=== PATIENT | male | born 1935 | race Caucasian/White ===

== ENCOUNTER 2017-01-03 12:11 | Day surgery (SDC) | payer MEDICARE ==
[~2017-01-03] VITALS: Ht 175.3 cm; Wt 102.3 kg
[~2017-01-03 12:11] MED LIST: ALLO300 PO; AMIO200T PO; ATOR20TA42 PO; BYST2.5T2 PO; CALC-197 PO; CEPH500; DOXA1 PO; GLUC10TA3 PO; KLOR20TA6 PO; LASI80TA PO; LORTA10 PO; PRIL40CA PO; TAB-TAB PO; TELM1TAB56 PO; VITA100018 PO
[2017-01-03 12:30] VITALS: BP 119/76; PULSE 71; RESP 17; TEMP 98.2; O2SAT 92
[2017-01-03] MEDS ORDERED: VANCOMYCIN 1000 MG/NS 250 ML IV SCH ×2 (13:00)
[2017-01-03] MEDS ORDERED: INSULIN HUMAN REGULAR 1,000 UNITS/10 ML VIAL SQ PRN (13:00)
[2017-01-03] MEDS ORDERED: Hold AM Insulin & AM Hypoglycemic medications in diabetic patients PRN (13:00)
[2017-01-03] MEDS ORDERED: POVIDONE IODINE 5% (ANTISEPSIS KIT) 4 APPLICATIONS EACH NARE SCH (13:00)
[2017-01-03] MEDS ORDERED: METOPROLOL TARTRATE 25 MG TAB PO PRN (13:00)
[2017-01-03] MEDS ORDERED: CHLORHEXIDINE GLUCONATE 2 % 1 PACK (2 CLOTHS) TOPICAL PRN (13:00)
[2017-01-03] MEDS ORDERED: NS 1000 ML IV SCH (13:00)
[2017-01-03] MEDS ORDERED: LORazepam 1 MG TAB SL SCH (13:00)
[2017-01-03] MEDS ORDERED: ceFAZolin 2 GM PREMIX 50 ML IV SCH (13:00)
[2017-01-03] MEDS ORDERED: POVIDONE IODINE 5% (ANTISEPSIS KIT) 4 APPLICATIONS EACH NARE PRN (13:00)
[2017-01-03] MEDS ORDERED: SODIUM CHLORID 0.9% 500 ML IV PRN (13:00)
[2017-01-03] MEDS ORDERED: MUPIROCIN 2% OINT 1 APPLIC/GM SYR NASAL SCH (13:00)
[2017-01-03] MEDS ORDERED: CHLORHEXIDINE GLUCONATE 2 % 1 PACK (2 CLOTHS) TOPICAL SCH (13:00)
[2017-01-03] MEDS ORDERED: LACTATED RINGER'S 1000 ML IV PRN (13:00)
[2017-01-03 13:12] LABS: BASOPHIL # 0.1 TH/MM3 (0-0.2); BASOPHIL % 1.1 % (0.0-2.0); EOSINOPHIL # 0.2 TH/MM3 (0-0.4); EOSINOPHIL % 3.2 % (0.0-4.0); HEMATOCRIT 39.2 % (39.0-51.0); HEMO FLAGS DIFF FINAL; LYMPH % 22.6 % (9.0-44.0); LYMPHOCYTE # 1.7 TH/MM3 (1.0-4.8); MEAN CELL VOLUME 97.9 FL (80.0-100.0); MEAN CORPUSCULAR HEMOGLOBIN 32.9 PG (27.0-34.0); MEAN CORPUSCULAR HGB CONC 33.6 % (32.0-36.0); NEUT % 66.1 % (16.0-70.0); PLATELET COUNT 161 TH/MM3 (150-450); RED BLOOD COUNT 4.01 MIL/MM3 (4.50-5.90); RED CELL DISTRIBUTION WIDTH 15.5 % (11.6-17.2); WHITE BLOOD COUNT 7.5 TH/MM3 (4.0-11.0)
[2017-01-03] MEDS ORDERED: CALC1TAB12 PO (13:22)
[2017-01-03] MEDS ORDERED: BYST5TAB2 PO (13:22)
[2017-01-03] MEDS ORDERED: AMOX500C PO (13:22)
[2017-01-03] MEDS ORDERED: DOXA1TAB35 PO (13:22)
[2017-01-03] MEDS ORDERED: FURO80TA PO (13:22)
[2017-01-03] MEDS ORDERED: ALLO300T2 PO (13:22)
[2017-01-03] MEDS ORDERED: GLIP10TA6 PO (13:22)
[2017-01-03] MEDS ORDERED: LIPI20TA PO (13:22)
[2017-01-03] MEDS ORDERED: TELM1TAB56 PO (13:22)
[2017-01-03] MEDS ORDERED: POTA-163 PO (13:22)
[2017-01-03] MEDS ORDERED: MULT1TAB84 PO (13:22)
[2017-01-03] MEDS ORDERED: APIX5TAB PO (13:22)
[2017-01-03 13:23] LABS: APTT (PATIENT) 28.2 SEC (24.3-30.1); INTERNATIONAL NORMALIZED RATIO 1.1 RATIO; PROTHROMBIN TIME - PATIENT 11.9 SEC (9.8-11.6)
[2017-01-03 13:28] LABS: BICARBONATE 36.7 MEQ/L (21.0-32.0); POTASSIUM 3.6 MEQ/L (3.5-5.1)
[2017-01-03] MEDS ORDERED: PROPOFOL 200 MG/20 ML AMP IV ONE (15:40)
[2017-01-03] MEDS ORDERED: MIDAZOLAM HCL 2 MG/2 ML VIAL ONE (15:48)
[2017-01-03] MEDS ORDERED: VANCOMYCIN 500 MG VIAL ONE (15:51)
[2017-01-03] MEDS ORDERED: LIDOCAINE HCL 2% 50 ML VIAL ONE (15:51)
[2017-01-03] MEDS ORDERED: CEPH-460 PO (16:43)
[2017-01-03] MEDS ORDERED: ACET300T2 PO (16:43)
[2017-01-03] MEDS ORDERED: ACETAMINOPHEN/CODEINE 300 MG/30 MG TAB PO PRN (16:45)
--- NOTE | 2017-01-03 16:47 | CATHPROC ---
[employer] HIS Report Study Information Study Number Admission Scheduled Start Study Start [id number] 01/02/2017 01/03/2017 01/03/2017 Referring Institution Admit Source Facility Department 1 Other [facility] - [facility] Physician and Clinical Staff Initial Virgie Helm Dope Sprayer Sil Holden,RN Other Anesthesia, SET BUILDER Recorder Sil Holden,RN Recorder Ingrid Myers,RT(R) TECH2 Scrub Moraima Camargo RCIS Equipment Time Warehouse Clerk Description Size Mfg Part Number Used/Scraped DERMABOND, ADHESIVE SKIN 15:52 CORDIS/PACER * [id number] Used GLUE MINI 15:52 Quad/Graphics INDUSTRIES SUTURE, STRIP PLUS 1/2" * [id number] Used 15:52 MEDLINE PACER SINHA, LIMB * [id number] Used 15:52 Quad/Graphics PACER PACK, PACER CUSTOM * [id number] Used 16:06 Needle Sponge Count 1 1 Used 16:07 Needle Sponge Count 2 22 Used 16:07 Needle Sponge Count 20 200 Used SUTURE, 2-0 VICRYL [CT1] ([id number]) 15:52 [facility] BLANKET,WARM AIR CCL * [id number] Used [facility] PAD, ELECTROSURGICAL 15:52 * [id number] Used SURGICAL GROUNDING ORANGE 16:14 VITATRON MEDTRONIC DEFIBRILLATOR, VIVA XT ADVERTISING CAMPAIGN MANAGER-D DDE-DDDR [id number] Used 15:59 VITATRON MEDTRONIC PLASMABLADE, PEAD 3.0S * [id number] Used Equipment Model, Serial, Lot Number and Expiration Data Description Model Number Serial Number Lot Number Expiration Date DEFIBRILLATOR, VIVA XT ADVERTISING CAMPAIGN MANAGER-D [id number] 01-13-2018 PLASMABLADE, PEAD 3.0S [id number] 08-21-2019 History: Current Medications Medication Dosage/Unit Route Frequency Last Date/Time Taken ELIQUIS Glucophage History: Allergies Allergy Reaction Simvastatin History: Risk Factors Hypertension Dyslipidemia Yes Yes Prior PCI Prior PCIDate Yes 08/16/2016 Cerebrovascular Diabetes Diabetes Therapy Disease Yes Yes Oral Labs Hgb (g/dl) Hct (%) RBC (MIL/MM3) WBC (l/cumm) Platelets (thousands) 12.00-18.00 37.00-55.00 4.80-6.20 4.80-10.80 140.00-450.00 13.0 39 4 7.5 161 Glucose (mg/dl) BUN (mg/dl) Creatinine (mg/dl) BUN:Creatinine (1:x) 60.00-110.00 8.00-20.00 0.10-9.00 10.00-20.00 115 50 1.8 27.8 Na (meq/l) K (meq/l) 138.00-146.00 3.80-5.10 145 3.6 INR (PTT:PT) 0.50-2.00 1.1 Medication Medication Total Dose (Bolus/Oral) Medication Total Dosage/Unit 2% XYLOCAINE 50 mL Medications (Bolus/Oral) Medication Time Given Dosage/Unit Administered By Reason 2% XYLOCAINE 01/03/2017 4:08:04 PM 50 mL Virgie Montgomery For pain 50 mL 2% XYLOCAINE given in lab by Virgie Montgomery in Left shoulder via Subcutaneous. Ordered by Virgie Montgomery. Reason: For pain. Medication (Drip) Medication Time Given Dosage/Unit Concentration/Unit Diluent (ml) Solution ANCEF 01/03/2017 4:01:13 PM 2 g 2 g ANCEF given in lab by Anesthesia, SET BUILDER via Peripheral IV. Ordered by Virgie Montgomery. VANCOMYCIN DRIP 01/03/2017 4:02:39 PM 1 g 1 g VANCOMYCIN DRIP given in lab by Anesthesia, SET BUILDER via Peripheral IV. Ordered by Virgie Montgomery. Initial Case Assessment Cardiovascular HR Rhythm NIBP Chest Pain 50 vp genetic 160/75 0 Edema Present Skin color Skin None Normal Warm Dry Circulatory - Lower Extremities Color Lower Right Color Lower Left Normal Normal Neurological State Oriented to time-place- Alert Moves all extremities person Respiration - General Respiration Rate SpO2 (%) O2 (lpm) (B/min) 20 98 10 Chronological Log Time Study Chronological Log 15:40:34 Patient arrived via Bed. 15:45:42 Patient Name, D.O.B, / Armband Verified By R.N. 15:45:43 Pre-op and post- op instructions given; patient acknowledges understanding of instructions. 15:45:44 Consent signed by the physician and the patient and verified by the [facility] staff. 15:45:44 Anesthesia at bedside. Assumes care of patient. 15:45:46 Patient has been NPO for More than 6Hrs. 15:45:47 Skin Breakdown- none per pt 15:45:48 Patient Warmer Placed on the Table. 15:45:49 Disposable Defibrillator Pads Placed On Patient. 15:45:49 Aston Prominences Protected 15:46:00 Verbal Stimulation=2 Physical Stimulation=2 Airway=2 Respiration=2 TOTAL=8. (0=absent, 1=li mited, 2=present) 15:49:00 A # 20 IV was noted in the Antecubital (right). Grade = 0 0.9ns kvo 15:49:02 A # 20 IV was noted in the Antecubital (left). Grade = 0 0.9ns kvo 15:52:53 Table restraints applied according to hospital policy 15:53:49 History and physical on the chart. 15:54:03 Left Upper Chest Prepped Times Two. Assessment: Initial Case, HR=50 BPM, Rhythm=vp genetic, TMBJ=649/75 mmhg, Chest Pain=0, Edema=None, Col or=Normal, Skin = Warm, Dry Lower Right Extremities: Color=Normal 15:54:58 Lower Left Extremities: Color=Normal Neurological: State=Alert, Ox3, RAHMAN Respiration: Resp=20 B/min, SpO2=98 %, O2=10 lpm 15:59:18 Reference ECG taken 16:01:13 2 g ANCEF given in lab by Anesthesia, SET BUILDER via Peripheral IV. Ordered by Virgie Montgomery. 16:02:24 paged 16:02:39 1 g VANCOMYCIN DRIP given in lab by Anesthesia, SET BUILDER via Peripheral IV. Ordered by Fernando Montgomery. 16:04:41 MD arrived. First Sponge And Instrument Count Done by Sil Holden RN. 16:04:52 Hypo's: 1, Sponges: 20, Bovie/scratch: 2 Sutures: 2, Blades: 1, Instruments: 26, Syveck Patches: 0 Time Out. Correct patient, procedure, procedure equipment, site and side verified with physicia n present. Time 16:07:44 concurred by , individual staff and SET BUILDER. Time Out #2 - Consents verified, patient in correct position, all results are labled and displa yed, safety precautions 16:07:46 taken, antibiotics administered. Time out concurred by , individual staff and SET BUILDER in procedu re 16:08:01 Case Start 50 mL 2% XYLOCAINE given in lab by Virgie Montgomery in Left shoulder via Subcutaneous. Ordered by Virgie Montgomery. 16:08:04 Reason: For pain. 16:08:31 Surgical Incision Made. 16:08:38 A pocket was created at the L Upper Chest. 16:09:17 A device was explanted. 16:16:13 Lead placement verified under fluoroscopy 16:16:15 A DEFIBRILLATOR, VIVA XT ADVERTISING CAMPAIGN MANAGER-D DDE-DDDR was connected and placed in the pocket. 16:16:39 Pocket flushed with antibiotic solution 16:16:40 Implant Procedure was performed. GENERATOR CHANGE 16:17:16 A Bivent Removal . (Dual) 16:17:29 A Bivent ICD Implant . (Dual) Second Sponge And Instrument Count Done by Sil Holden RN. 16:18:09 Hypo's: 1, Sponges: 20, Bovie/scratch: 2 Sutures: ~SUTURE~, Blades: 1, Instruments: ~INSTRU~, Syveck Patches: 0 16:19:42 The pocket was closed by Moraima CHANCE The Final Sponge And Instrument Count Done by Sil Holden RN. 16:35:56 Hypo's: 1, Sponges: 20, Bovie/scratch: 2 Sutures: 2, Blades: 1, Instruments: 26, Syveck Patches: 0 16:39:19 Case End 16:39:23 Steri-strips and a sterile dressing applied to site. 16:39:43 Sterile dressing applied to site 16:39:44 No case complications noted. 16:39:46 Cine recording checked. 16:39:47 Bedside Report will be given. 16:39:48 Implantable Device card placed in patient's chart. 16:39:56 Defibrillator and ground pads removed. Skin intact. 16:40:03 Please see anesthesia notes for vitals and medications given during the procedure. 16:41:10 DOCU called. Spoke to Sharlene ORTEGA 16:42:16 Patient moved to [facility] End Study - Contrast Media Used In Study Contrast Total Opened (mL) Total Used (mL) Total Wasted (mL) Unspecified 0 0 0 End Study - Maximum Contrast Load Max Contrast Load (mL) 284.2 End Study - Radiation Exposure Fluoro Time (minutes) 0.0 End Study - Patient Disposition Complications Transferred To Outpatient Bed
--- NOTE | 2017-01-03 17:35 | MB ---
cc: IAM CARREON M.D. DATE OF CONSULTATION: 01/03/2017. REASON FOR CONSULTATION: HISTORY OF PRESENT ILLNESS: Mr. Varela is an 81-year-old gentleman with congestive heart failure, cardiomyopathy, previous biventricular pacer defibrillator implanted in 2012 with generator currently end of life admitted for evaluation and possible generator replacement. The chart was reviewed. The patient was evaluated. ALLERGIES: SIMVASTATIN. SOCIAL HISTORY: Negative for smoking and drinking. FAMILY HISTORY: Noncontributory to his current medical condition. MEDICATIONS: 1. Allopurinol. 2. Amoxicillin. 3. Bystolic 5 milligrams a day. 4. Doxazosin 2 milligrams a day. 5. Eliquis 5 milligrams twice a day. 6. Glipizide 10 milligrams a day. 7. Losartan 50 milligrams a day. 8. Metformin. 9. Torsemide. REVIEW OF SYSTEMS: He refers shortness of breath on activity. No chest pain. No chest discomfort. PHYSICAL EXAMINATION: GENERAL: Alert, fully oriented. VITAL SIGNS: Blood pressure on evaluation 113/73, pulse around 68, respiratory rate 18. LUNGS: Ventilated. CARDIOVASCULAR: S1 and S2. No gallop. No murmur. ABDOMEN: Abdomen obese, no mass, no bruits. EXTREMITIES: No edema. EKGS: Electrocardiogram with AV sequential pacing. ASSESSMENT AND RECOMMENDATIONS: Mr. Amanda generator is currently end of life. His last echocardiogram was in May of 2015. Ejection fraction around 35% to 40%. This gentleman is going to need generator replacement. He is also pacer-dependent. The risks, the nature and the benefits of the procedure were clearly stated to him. The risks include pneumothorax, cardiac perforation, stroke and even . He understood and agreed to proceed. The procedure will be performed during hospitalization. Iam Carreon MD /[facility] /4:31 PM /5:21 PM
--- NOTE | 2017-01-03 20:33 | MP ---
cc: IAM CARREON M.D. DATE OF SURGERY: 01/03/2017. OPERATION: 1. Biventricular pacer-defibrillator removal. 2. Biventricular pacer-defibrillator insertion. 3. Pocket revision. INDICATIONS FOR THE PROCEDURE: Mr. Varela is an 81-year-old gentleman with congestive heart failure, cardiomyopathy, coronary artery disease, generator end of life on optimal medical treatment per guideline. His last echo was in May with an ejection fraction of around 35% to 40%. He will undergo generator replacement. The risks, the nature and the benefits of the procedure were clearly stated to him. The risks include pneumothorax, cardiac perforation, stroke, need for open heart surgery and even . The patient understood and agreed to proceed. DESCRIPTION OF THE PROCEDURE IN DETAIL: After written informed consent was obtained, the patient was brought to the EP lab where he was prepped and draped in the usual sterile fashion. Conscious sedation was initiated and maintained throughout the procedure by the anesthesiologist. Once sedation was verified, the left infraclavicular area was anesthetized with 2% Xylocaine. Using a #11 scalpel, a 3-cm incision was made over the existing generator. This incision was then taken down to the deep fascial layer using Bovie cautery and blunt dissection. Once exposed, the generator was removed from the pocket. ____ was removed. The pocket was expanded and pocket revision was performed.. Then the lead was disconnected from the generator and tested. After adequate pacing and sensing thresholds were obtained, the lead was connected to a new generator and placed into the pocket. The patient is pacemaker-dependent. At this point, I did proceed with wound closure. The deep fascial layer was approximated using #2-0 Vicryl suture in a continuous fashion. The subcutaneous layer was approximated using #2-0 Vicryl suture in a continuous fashion. The subcuticular layer was approximated using #2-0 Vicryl suture in a continuous fashion. Dermabond adhesive was applied to the wound followed by a sterile pressure dressing. There were no complications. The patient tolerated procedure. The blood loss was minimal. 1. EXPLANTED HARDWARE: The explanted defibrillator generator is a Medtronic model #C703VGA, serial #[id number]. 2. IMPLANTED HARDWARE: The implanted biventricular pacer-defibrillator is a Medtronic model #BKOU9P2, serial #[id number]. 3. THRESHOLDS: The right atrial pacing threshold cannot be measured. The patient is only V-pacing. Atrial fibrillation. The right ventricular pacing threshold in bipolar mode was 0.75 volts at 0.9 milliseconds. Lead impedance was 400 Ohms. R wave could not be measured. The patient is pacemaker-dependent. The left ventricular pacing threshold in bipolar mode was 2.25 volts at 0.4 milliseconds. Lead impedance was 360 Ohms. 3. SETTINGS: The device was set in a VVIR 70 with upper rate limit of 110 beats per minute and by 40 milliseconds. The defibrillatory portion is set for two zones: One zone for ventricular tachycardia between 160 to 240 beats per minute. Initial therapy consists of one burst of ATP, one ramp, 81% 10-pulse, 10 millisecond decremental followed by a 20 then 30 and all subsequent shocks at 40 joule defibrillatory shock. The second zone was set for ventricular fibrillation above 240 beats per minute with first therapy at 25 and all subsequent shocks at 35 joule defibrillatory shock. CONCLUSIONS: Successful biventricular pacer-defibrillator removal, biventricular pacer-defibrillator removal, biventricular pacer-defibrillator placement and device testing. COMMENTS AND RECOMMENDATIONS: The patient is going to be transferred to the telemetry unit. He will be observed and when stable will be discharged home. MD ALO Lanier/NADIRA /4:33 PM /8:21 PM
--- NOTE | 2017-01-04 15:45 | EKG ---
Date Performed: 01/03/2017 Time Performed: 13:25:20 PTAGE: 81 years EKG: Atrial fibrillation with PVC(s) or aberrant ventricular conduction Left axis deviation IV c onduction defect Extensive infarct - age undetermined Abnormal ECG PREVIOUS TRACING : 12/21/2012 08.57 DOCTOR: Tyrone Higginbotham Interpretating Date/Time 01/04/2017 15:37:56
== END 2017-01-03 18:17 | disposition home or self-care (01) ==
LOC: HDIC 12:11 → HDOC 12:11
PROVIDERS: ATTEND Internal Medicine Interventional Cardiology
DX: Z45.02 Encounter for adjustment and management of automatic implantable cardiac defibrillator (principal); I49.5 Sick sinus syndrome; I48.91 Unspecified atrial fibrillation; I11.0 Hypertensive heart disease with heart failure; I50.9 Heart failure, unspecified; I25.10 Atherosclerotic heart disease of native coronary artery without angina pectoris; R06.02 Shortness of breath; Z79.01 Long term (current) use of anticoagulants
CPT/HCPCS: 33264; 80048; 85025; 85610; 85730; 86850; 86900; 86901; 93005; C1882; J2250; J3010; J3370; J7030

== ENCOUNTER 2017-11-25 09:35 | Emergency (ER) | payer MEDICARE ==
[~2017-11-25] VITALS: Ht 177.8 cm; Wt 105.0 kg
[~2017-11-25 09:35] MED LIST changes: +ACET300T2 PO; -ALLO300 PO; +ALLO300T2 PO; -AMIO200T PO; +AMOX500C PO; +APIX5TAB PO; -ATOR20TA42 PO; -BYST2.5T2 PO; +BYST5TAB2 PO; -CALC-197 PO; +CALC1TAB12 PO; +CEPH-460 PO; -CEPH500; -DOXA1 PO; +DOXA1TAB35 PO; +FURO80TA PO; +GLIP10TA6 PO; -GLUC10TA3 PO; -KLOR20TA6 PO; -LASI80TA PO; +LIPI20TA PO; -LORTA10 PO; +MULT1TAB84 PO; +POTA-163 PO; -PRIL40CA PO; -TAB-TAB PO; -VITA100018 PO
[2017-11-25 10:40] VITALS: BP 137/66; PULSE 82; RESP 17; TEMP 97.6; O2SAT 99
[2017-11-25 10:44] VITALS: BP 137/66; PULSE 82; RESP 17; TEMP 97.6; O2SAT 99
[2017-11-25] MEDS ORDERED: SODIUM CHLORIDE 0.9% FLUSH 10 ML FLUSH IVF PRN (11:00)
--- NOTE | 2017-11-25 11:29 | PD ---
Physical Exam Date Seen by Provider: Nov 25, 2017 Narrative This patient presents because he saw blood coming from between his legs while he was showering this morning. The blood was presumably coming from his rectum. The patient is on Eliquis. Data Data Last Documented VS Vital Signs Date Time Temp Pulse Resp B/P (MAP) Pulse Ox O2 Delivery O2 Flow Rate FiO2 11/25/17 10:44 97.6 82 17 137/66 (89) 99 Room Air Orders Orders Complete Blood Count With Diff (11/25/17 10:46) Comprehensive Metabolic Panel (11/25/17 10:46) Prothrombin Time / Inr (Pt) (11/25/17 10:46) Act Partial Throm Time (Ptt) (11/25/17 10:46) Type And Screen (11/25/17 10:46) Ecg Monitoring (11/25/17 10:46) Iv Access Insert/Monitor (11/25/17 10:46) Oximetry (11/25/17 10:46) Sodium Chloride 0.9% Flush (Ns Flush) (11/25/17 11:00) MDM Supervised Visit with HARRY: Yes Narrative Course I, Dr. Varela, have reviewed the advance practice practitioner's documentation and am in agreement, met with the patient face to face, made the diagnosis, and the medical decision making was done by me. *My assessment and Findings: Patient is awake and alert with good color. No visible blood from the rectum. Numerous scabbed lesions on the scrotal sac as well as dried blood on both inner thighs. Please see Ewelina Us PA-C's note for further details, lab and radiology results, final diagnosis and disposition. Yue Valerio MD Nov 25, 2017 11:29
--- NOTE | 2017-11-25 11:38 | PD ---
HPI Chief Complaint: Bleeding Time Seen by Provider: 11:16 Travel History International Travel<30 days: No Contact w/Intl Traveler<30days: No Traveled to known affect area: No History of Present Illness HPI 82-year-old male with a history of A fib on Eliquis presents emergency department evaluation of bleeding that occurred while he was showering this morning. Says at about 530 he was showering and he noticed some bright red bleeding coming from his groin and assumed this was from his rectum. Patient states that he has no prior history of of this. Patient says he has a history of hemorrhoids that were treated in the 70s. Patient had a colonoscopy approximately 2 years ago as a regular checkup or polyps were found. Says this was completed by Dr. Rojas. Patient denies straining or feeling constipated more than normal. Denies fever, chills, chest pain, shortness of breath, dizziness, abdominal pain, rectal pain. Says he has had a TURP for his BPH however, currently takes doxazosin for his blood pressure. Past medical history includes congestive heart failure, afib, gout, HTN, BPH, diabetes. PFSH Past Medical History Hx Anticoagulant Therapy: Yes Arthritis: Yes Asthma: No Blood Disorders: No Heart Rhythm Problems: Yes (A-FIB/ FLUTTER) Cancer: Yes (skin) Cardiac Catheterization: Yes Cardiovascular Problems: Yes High Cholesterol: Yes Chest Pain: No Congestive Heart Failure: Yes COPD: Yes Cerebrovascular Accident: Yes Diabetes: Yes Diminished Hearing: No Endocrine: Yes Gastrointestinal Disorders: No GERD: Yes Glaucoma: No Gout: Yes Genitourinary: No Hepatitis: No Hiatal Hernia: No Hypertension: Yes Immune Disorder: No Musculoskeletal: No Neurologic: No Psychiatric: No Reproductive: No Respiratory: Yes (SLEEP APNEA) Integumentary: No Sleep Apnea: Yes (NO CPAP AT HOME) Thyroid Disease: No Past Surgical History Abdominal Surgery: Yes (hernia UMBLILICAL) Cardiac Surgery: Yes (PACER 2009) Coronary Stent: Yes () Genitourinary Surgery: Yes (turp) Pacemaker: Yes (MEDTRONIC, [id number]) Thoracic Surgery: No Other Surgery: Yes (CARPLE TUNNEL AND PININIDAL CYST) Social History Alcohol Use: No Tobacco Use: No Substance Use: No Allergies-Medications (Allergen,Severity, Reaction): Coded Allergies: simvastatin (Unverified Allergy, Severe, 11/25/17) Reported Meds & Prescriptions Reported Meds & Active Scripts Active Reported Multi-Vitamin/Minerals (Multiple Vitamins W/ Minerals) 1 Tab Tab 1 Tab PO DAILY Metformin (Metformin HCl) 500 Mg Tab 1,000 Mg PO BID Torsemide 100 Mg Tab 100 Mg PO BID Losartan (Losartan Potassium) 50 Mg Tab 50 Mg PO DAILY Eliquis (Apixaban) 5 Mg Tab 5 Mg PO BID Potassium Chloride ER (Potassium Chloride) 20 Meq Tab 20 Meq PO BID Glipizide 10 Mg Tab 10 Mg PO DAILY Take 30 minutes before a meal Doxazosin (Doxazosin Mesylate) 2 Mg Tab 2 Mg PO DAILY Bystolic (Nebivolol) 5 Mg Tab 5 Mg PO DAILY Allopurinol 300 Mg Tab 300 Mg PO DAILY Review of Systems Except as stated in HPI: all other systems reviewed are Neg Physical Exam Narrative GENERAL: Well developed, well-nourished in no apparent distress SKIN: Focused skin assessment warm/dry. HEAD: Atraumatic. Normocephalic. EYES: Pupils equal and round. No scleral icterus. No injection or drainage. ENT: No nasal bleeding or discharge. Mucous membranes pink and moist. NECK: Trachea midline. No JVD. CARDIOVASCULAR: Regular rate and rhythm. No murmur appreciated. RESPIRATORY: No accessory muscle use. Clear to auscultation. Breath sounds equal bilaterally. GASTROINTESTINAL: Abdomen protuberant, soft, non-tender, nondistended. Hepatic and splenic margins not palpable. MUSCULOSKELETAL: No obvious deformities. No clubbing. No cyanosis. No edema. Groin exam cleaning completed in the presence of the nurse and my attending- rectum nonbloody. Not the obvious source of the bleeding. Scrotal exam- multiple forte angiomas versus varices. Bleeding is controlled-right anterior aspect of scrotum with small area of fresh blood NEUROLOGICAL: Awake and alert. No obvious cranial nerve deficits. Motor grossly within normal limits. Normal speech. PSYCHIATRIC: Appropriate mood and affect; insight and judgment normal. Data Data Last Documented VS Vital Signs Date Time Temp Pulse Resp B/P (MAP) Pulse Ox O2 Delivery O2 Flow Rate FiO2 11/25/17 13:17 70 18 137/69 (91) 98 11/25/17 12:12 Room Air 11/25/17 10:44 97.6 Orders Orders Complete Blood Count With Diff (11/25/17 10:46) Comprehensive Metabolic Panel (11/25/17 10:46) Prothrombin Time / Inr (Pt) (11/25/17 10:46) Act Partial Throm Time (Ptt) (11/25/17 10:46) Type And Screen (11/25/17 10:46) Ecg Monitoring (11/25/17 10:46) Iv Access Insert/Monitor (11/25/17 10:46) Oximetry (11/25/17 10:46) Sodium Chloride 0.9% Flush (Ns Flush) (11/25/17 11:00) Wound Care (11/25/17 12:45) Ed Discharge Order (11/25/17 12:45) Labs Laboratory Tests Test 11/25/17 11:37 White Blood Count 9.0 TH/MM3 Red Blood Count 3.79 MIL/MM3 Hemoglobin 13.1 GM/DL Hematocrit 38.5 % Mean Corpuscular Volume 101.5 FL Mean Corpuscular Hemoglobin 34.4 PG Mean Corpuscular Hemoglobin Concent 33.9 % Red Cell Distribution Width 15.8 % Platelet Count 177 TH/MM3 Mean Platelet Volume 9.4 FL Neutrophils (%) (Auto) 73.1 % Lymphocytes (%) (Auto) 18.2 % Monocytes (%) (Auto) 6.0 % Eosinophils (%) (Auto) 1.9 % Basophils (%) (Auto) 0.8 % Neutrophils # (Auto) 6.6 TH/MM3 Lymphocytes # (Auto) 1.6 TH/MM3 Monocytes # (Auto) 0.5 TH/MM3 Eosinophils # (Auto) 0.2 TH/MM3 Basophils # (Auto) 0.1 TH/MM3 CBC Comment DIFF FINAL Differential Comment Prothrombin Time 11.2 SEC Prothromb Time International Ratio 1.1 RATIO Activated Partial Thromboplast Time 27.5 SEC Blood Urea Nitrogen 49 MG/DL Creatinine 2.09 MG/DL Random Glucose 143 MG/DL Total Protein 7.4 GM/DL Albumin 3.7 GM/DL Calcium Level 9.2 MG/DL Alkaline Phosphatase 217 U/L Aspartate Amino Transf (AST/SGOT) 28 U/L Alanine Aminotransferase (ALT/SGPT) 32 U/L Total Bilirubin 0.9 MG/DL Sodium Level 144 MEQ/L Potassium Level 3.7 MEQ/L Chloride Level 101 MEQ/L Carbon Dioxide Level 34.4 MEQ/L Anion Gap 9 MEQ/L Estimat Glomerular Filtration Rate 31 ML/MIN MDM Medical Decision Making Medical Screen Exam Complete: Yes Emergency Medical Condition: Yes Differential Diagnosis Scrotal varices, forte angioma, rectal bleeding, anemia, symptomatic anemia Narrative Course 82-year-old male presents emergency department with concerns of bleeding started from his groin this morning. Patient is seen that this is from his rectum however, the exam findings were not consistent with this. It appears that patient's scrotum has several forte angiomas and while washing this morning patient noticed this bleeding started. Patient is on Eliquis and likely is bleeding more than normal as a result of this. Patient does admit to a history of previous episodes however, says this is worse than previously. On exam, patient's bleeding is controlled. There is one area of what appears to be fresh blood but the area does not appear actively bleeding. He denies dizziness, lightheadedness, shortness of breath and has no other complaints. Labs ordered. Vital Signs Date Time Temp Pulse Resp B/P (MAP) Pulse Ox O2 Delivery O2 Flow Rate FiO2 11/25/17 10:44 97.6 82 17 137/66 (89) 99 Room Air 11/25/17 10:40 97.6 82 17 137/66 (89) 99 CBC & BMP Diagram 11/25/17 11:37 Total Protein 7.4, Albumin 3.7, Calcium Level 9.2, Alkaline Phosphatase 217 H, Aspartate Amino Transf (AST/SGOT) 28, Alanine Aminotransferase (ALT/SGPT) 32, Total Bilirubin 0.9 His labs are stable. Compared to Previous labs from 2017. History and physical suggest that patient has a forte angioma which was likely nicked while washing himself today. There is no evidence of rectal bleeding. The bleeding was controlled upon reevalaution. I advised that he follow up with his primary care physician, auditing control clerk, and consider dermatology for further evaluation. Advised that the bleeding restarted he apply pressure to the area. Wound care completed today-triple antibiotic and nonstick gauze. Diagnosis Primary Impression: Scrotal bleeding Referrals: [employer] [facility] Additional Instructions: Follow-up with your primary care physician and cardiology within 1 week. Consider follow-up with a research consultant for further evaluation. If the bleeding restarts, apply pressure and lay flat to reduce pressure to the area. If you develop dizziness or weakness, return to the ED. Disposition: 01 DISCHARGE HOME Condition: Stable Ewelina Us Nov 25, 2017 11:38
[2017-11-25 11:59] LABS: AUTOMATED NEUTROPHIL # 6.6 TH/MM3 (1.8-7.7); BASOPHIL # 0.1 TH/MM3 (0-0.2); BASOPHIL % 0.8 % (0.0-2.0); EOSINOPHIL # 0.2 TH/MM3 (0-0.4); EOSINOPHIL % 1.9 % (0.0-4.0); HEMATOCRIT 38.5 % (39.0-51.0); HEMOGLOBIN 13.1 GM/DL (13.0-17.0); LYMPH % 18.2 % (9.0-44.0); LYMPHOCYTE # 1.6 TH/MM3 (1.0-4.8); MEAN CELL VOLUME 101.5 FL (80.0-100.0); MEAN CORPUSCULAR HEMOGLOBIN 34.4 PG (27.0-34.0); MEAN CORPUSCULAR HGB CONC 33.9 % (32.0-36.0); MEAN PLATELET VOLUME 9.4 FL (7.0-11.0); MONOCYTE # 0.5 TH/MM3 (0-0.9); NEUT % 73.1 % (16.0-70.0); PLATELET COUNT 177 TH/MM3 (150-450); RED BLOOD COUNT 3.79 MIL/MM3 (4.50-5.90); RED CELL DISTRIBUTION WIDTH 15.8 % (11.6-17.2)
[2017-11-25 12:12] VITALS: BP 137/69; PULSE 70; RESP 18; O2SAT 95
[2017-11-25 12:14] LABS: ALBUMIN 3.7 GM/DL (3.4-5.0); ALT (GPT) 32 U/L (12-78); AST (GOT) 28 U/L (15-37); BICARBONATE 34.4 MEQ/L (21.0-32.0); BLOOD UREA NITROGEN 49 MG/DL (7-18); CALCIUM 9.2 MG/DL (8.5-10.1); CHLORIDE 101 MEQ/L (98-107); CREATININE 2.09 MG/DL (0.60-1.30); GLOMERULAR FILTRATION RATE 31 ML/MIN (>89); GLUCOSE,RANDOM 143 MG/DL (74-106); INTERNATIONAL NORMALIZED RATIO 1.1 RATIO; PROTHROMBIN TIME - PATIENT 11.2 SEC (9.8-11.6); SODIUM (NA) 144 MEQ/L (136-145)
[2017-11-25 12:16] LABS: ALKALINE PHOSPHATASE 217 U/L (45-117); TOTAL BILIRUBIN ADULT 0.9 MG/DL (0.2-1.0); TOTAL PROTEIN 7.4 GM/DL (6.4-8.2)
[2017-11-25] MEDS ORDERED: METF500T PO (12:44)
[2017-11-25] MEDS ORDERED: MULTTAB62 PO (12:44)
[2017-11-25] MEDS ORDERED: LOSA50TA PO (12:44)
[2017-11-25] MEDS ORDERED: TORS100T2 PO (12:44)
[2017-11-25 13:17] VITALS: BP 137/69
== END 2017-11-25 14:08 | disposition home or self-care (01) ==
LOC: NEPC 09:35
DX: N50.1 Vascular disorders of male genital organs (principal); E11.9 Type 2 diabetes mellitus without complications; I11.0 Hypertensive heart disease with heart failure; I50.9 Heart failure, unspecified; M10.9 Gout, unspecified; Z79.01 Long term (current) use of anticoagulants; Z79.84 Long term (current) use of oral hypoglycemic drugs
CPT/HCPCS: 80053; 85025; 85610; 85730; 86850; 86900; 86901; 99283